=== PATIENT | male | born 1990 | race Caucasian/White ===

== ENCOUNTER 2016-04-25 08:25 | Emergency (ER) | payer SELFPAY ==
[~2016-04-25] VITALS: Ht 167.6 cm; Wt 74.1 kg
[~2016-04-25 08:25] MED LIST: ACET-1256 PO; IBUP-1050 PO; LISI-461 PO
[2016-04-25 08:27] VITALS: TEMP 36.7; O2SAT 99; Ht 167.6 cm; Wt 74.1 kg
[2016-04-25] MEDS ORDERED: HYDR-5688 PO (09:37)
[2016-04-25] MEDS ORDERED: AMOX500C3 PO (09:37)
--- NOTE | 2016-04-25 09:38 | EMERGENCY ROOM VISIT NOTE ---
ED Visit Note First contact with patient: 08:33 Chief Complaint: Large Lump on LEFT Wrist History of Present Illness: Patient is a 26 year-old male who presents to the emergency department today for evaluation of a lump to the LEFT wrist. He has noticed this over the past 2 weeks. He has increasing pain with range of motion. He has no numbness or tingling into the distal fingers. There is been no trauma to the area. There is been no history of fracture or injury to the affected area. The patient also complains of RIGHT-sided lower molar dental pain. Patient rates his current discomfort is 7/10. 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 He was on the Cipro and metoprolol which she has not taken for the past several months. He has not seen his primary care provider recently. The patient rates his current discomfort as a 7 /10. He denies any chest pain, palpitations Short of breath, headaches, distance, lightheadedness, fevers, or chills. Medications: Reviewed and discussed with the patient. Allergies: Tramadol. PMH: No pertinent past medical history. SHx: Patient is a 26-year-old male who lives locally. ROS: All pertinent positive and negative review of systems are appropriately documented in the History of Present Illness. Physical Exam: VITAL SIGNS - Vital signs and nursing notes were reviewed. GENERAL - 26-year-old male appearing his stated age who is in no acute distress. Communicates well with provider and answers questions appropriately. HEAD - Normocephalic, Atraumatic. No Nichols's Sign or Raccoon's Eyes. No depressed skull fractures palpable. EYES - PERRL with EOMI bilaterally. EARS - No deformities of external structures noted on gross examination bilaterally. No pain elicited with palpation of the tragus bilaterally. External auditory canals without discharge or otorrhea. Tympanic membranes pearly lamb without retraction or bulging. No fluid or purulent material visualized behind the TM. NOSE - Midline and without cyanosis. No epistaxis or purulent drainage noted. Septum midline without deviation or septal hematoma noted. MOUTH/OROPHARYNX - Without perioral cyanosis. Buccal mucosa pink and moist and without leukoplakia. Tongue midline with equal elevation of palate bilaterally. No tonsillar hypertrophy, erythema, or exudates noted. Fair dentition noted. The RIGHT 1st molar tooth is fractured to the posterior pole of the tooth with dental caries noted. Surrounding gums erythematous and edematous without discharge. Exquisite tenderness to palpation of affected tooth. No trismus. No fluctuance to palpation or active drainage appreciated. No sublingual edema. NECK - Neck with FROM. Supple to palpation. No lymphadenopathy noted. No nuchal rigidity. EXTREMITY - palpable fluid-filled lump noted to the dorsal surface of the LEFT wrist. Mildly tender to palpation. No fluctuance. No erythema or warmth to touch. Full range of motion of the LEFT wrist appreciated with +5/5 strength appreciated bilaterally. ED Course: Patient was seen and evaluated by myself. I had a lengthy discussion with the patient regarding symptoms. The patient will be provided a prescription for amoxicillin as well as [place] for home. He was instructed on the need for close follow-up with his primary care provider for continued management of his blood pressure issues as well as cardiac disease. The patient was educated on worrisome symptoms for return visit to the emergency department. Patient discharged home in good condition. In the evaluation and treatment of this patient, the following differential diagnoses were considered: Wrist Sprain, Wrist Fracture, Wrist Dislocation, Scapholunate Dissociation, Carpal Fracture, Metacarpal Fracture, Radial Styloid Process Fracture, Ulnar Styloid Process Fracture, or Carpal Tunnel Syndrome, Periapical Abscess, Osteonecrosis of the Jaw, Dental Fracture, Dental Caries, Joseph's Angina, Vincent's Angina, Facial Cellulitis. Impression: LEFT Wrist Ganglion Cyst, Dental Pain Due to Dental Caries Discharge Instructions: You've been seen in the emergency department today for your ganglion cyst and dental pain. You have been prescribed Ultram to be used for pain control. This is a narcotic medication. You cannot drive or consume alcohol while on this medicine. This medicine should only be used for pain that cannot be controlled with over-the- counter pain medicines. You were prescribed Amoxicillin to be taken as prescribed. This is an antibiotic. All antibiotics have the potential to cause diarrhea. Stop this medication and contact a medical provider if you were to develop any significant adverse side effects including: wheezing, shortness of breath, passing out, vomiting, or a diffuse rash. Always take antibiotics as directed and COMPLETE the ENTIRE course regardless of the improvement of your symptoms. For pain control, you can use the following wqny-isz-etuaoih medicines (if >12 yo): - Regular strength (325mg/tab) Tylenol (acetaminophen) 2 tabs every 4-6 hours as needed. Do not exceed 12 tablets in a 24 hour period. Avoid taking more than 4 grams (4000 mg) of Tylenol per day. This includes any other sources of acetaminophen you may take on a regular basis. - Regular strength (200 mg/tab) Advil (ibuprofen) 1-2 tabs every 4-6 hours as needed. Do not exceed a dose of 3200 mg per day. Follow-up with your primary care provider from today's visit. This is IMPERATIVE for continued management of your blood pressure. Return for any changing or worsening symptoms. Problem List Medical Problems: (1) Asthma Status: Chronic (2) Heart disease Status: Chronic (3) HTN (hypertension) Status: Chronic Surgical Problems: (1) S/P CABG x 2 Status: Resolved Current/Historical Medications Scheduled Amoxicillin (Amoxil), 500 MG PO TID Scheduled PRN Hydrocodone/Acetaminophen 5MG/325MG ([place] 5MG/325MG), 1-2 TABLET PO Q4H PRN for Pain Allergies Coded Allergies: Tramadol (Verified Allergy, Severe, RASH, VOMITING, 10/02/15) Vital Signs Date Time Temp Pulse Resp B/P Pulse Ox O2 Delivery O2 Flow Rate FiO2 04/25/16 09:47 78 16 166/90 04/25/16 08:27 36.7 71 18 188/96 99 Room Air Departure Information Impression Primary Impression: Pain due to dental caries Additional Impression: Ganglion cyst of wrist Dispostion Home / Self-Care Condition GOOD Prescriptions Hydrocodone/Acetaminophen 5MG/325MG ([place] 5MG/325MG) Tab 1-2 TABLET PO Q4H Y for Pain, #12 TAB For Initial Treatment Prov: Michael Chahal PA-C 04/25/16 Amoxicillin (AMOXIL) 500 Mg Cap 500 MG PO TID for 10 Days, #30 CAP Prov: Michael Chahal PA-C 04/25/16 Referrals No Doctor, Assigned (PCP) Patient Instructions My [facility] Additional Instructions You've been seen in the emergency department today for your ganglion cyst and dental pain. You have been prescribed Ultram to be used for pain control. This is a narcotic medication. You cannot drive or consume alcohol while on this medicine. This medicine should only be used for pain that cannot be controlled with over-the- counter pain medicines. You were prescribed Amoxicillin to be taken as prescribed. This is an antibiotic. All antibiotics have the potential to cause diarrhea. Stop this medication and contact a medical provider if you were to develop any significant adverse side effects including: wheezing, shortness of breath, passing out, vomiting, or a diffuse rash. Always take antibiotics as directed and COMPLETE the ENTIRE course regardless of the improvement of your symptoms. For pain control, you can use the following reop-cnq-ladobpl medicines (if >12 yo): - Regular strength (325mg/tab) Tylenol (acetaminophen) 2 tabs every 4-6 hours as needed. Do not exceed 12 tablets in a 24 hour period. Avoid taking more than 4 grams (4000 mg) of Tylenol per day. This includes any other sources of acetaminophen you may take on a regular basis. - Regular strength (200 mg/tab) Advil (ibuprofen) 1-2 tabs every 4-6 hours as needed. Do not exceed a dose of 3200 mg per day. Follow-up with your primary care provider from today's visit. This is IMPERATIVE for continued management of your blood pressure. Return for any changing or worsening symptoms. Problem Qualifiers Additional Impression: Ganglion cyst of wrist Laterality: left Qualified Codes: M67.432 - Ganglion, left wrist
[2016-04-25 09:47] VITALS: BP 166/90; PULSE 78
== END 2016-04-25 09:48 | disposition home or self-care (01) ==
LOC: C.EDB 08:26
DX: M67.432 Ganglion, left wrist (principal); K02.9 Dental caries, unspecified; J45.909 Unspecified asthma, uncomplicated; I10 Essential (primary) hypertension; Z95.1 Presence of aortocoronary bypass graft

== ENCOUNTER 2016-05-02 05:37 | Emergency (ER) | payer SELFPAY ==
[~2016-05-02] VITALS: Ht 167.6 cm; Wt 74.3 kg
[~2016-05-02 05:37] MED LIST changes: -ACET-1256 PO; +AMOX500C3 PO; +HYDR-5688 PO; -IBUP-1050 PO; -LISI-461 PO
[2016-05-02 05:44] VITALS: TEMP 36.6; Ht 167.6 cm; Wt 74.3 kg
[2016-05-02] MEDS ORDERED: HYDR-5688 PO (06:14)
--- NOTE | 2016-05-02 06:19 | EMERGENCY ROOM VISIT NOTE ---
History First contact with patient: 05:49 Chief Complaint: DENTAL PAIN Stated Complaint: SEVERE TOOTH ACHE - GETTING WORSE Nursing Triage Summary: Patient reports he was here a week ago for dental pain and they told him to come back if it got worse. Patient still unable to eat and still having pain. Patient has dentist appointment 05/07. Also states he lost weight since the pain started. History of Present Illness The patient is a 26 year old male who presents to the Emergency Room with complaints of ongoing right lower dental pain for the past week and was seen here a few days ago. He has appointment on the get the tooth pulled. He is on antibiotics. He is requesting a few extra pain pills. Patient describes the pain as aching, ranging in severity 710 worse with chewing better with rest. Patient denies fevers, dysphagia, facial swelling, tongue swelling, chest pain, dyspnea, neck stiffness or any other medical complaints. Review of Systems See HPI for pertinent positives & negatives. A total of 10 systems reviewed and were otherwise negative. Past Medical/Surgical History Medical Problems: (1) Asthma (2) Heart disease (3) HTN (hypertension) Surgical Problems: (1) S/P CABG x 2 Family History Diabetes mellitus FH: heart disease Hypertension Social History Smoking Status: Current Every Day Smoker Marital Status: single Housing Status: lives with roommate Occupation Status: unemployed Current/Historical Medications Scheduled Amoxicillin (Amoxil), 500 MG PO TID Scheduled PRN Hydrocodone/Acetaminophen 5MG/325MG ([place] 5MG/325MG), 1 TABLET PO Q4H PRN for Pain Allergies Coded Allergies: Tramadol (Verified Allergy, Severe, RASH, VOMITING, 10/02/15) Physical Exam Vital Signs Date Time Temp Pulse Resp B/P Pulse Ox O2 Delivery O2 Flow Rate FiO2 05/02/16 06:20 82 20 154/90 98 05/02/16 05:44 36.6 95 18 154/76 98 Room Air Physical Exam VITALS: Vitals are noted on the nurse's note and reviewed by myself. Vital signs stable. GENERAL: Pleasant male, in no acute distress, nondiaphoretic, well-developed well-nourished. SKIN: The skin was without rashes, erythema, edema, or bruising. There is no tenting of the skin. Capillary reflex less than 2 seconds. HEAD: Normocephalic atraumatic. EARS: External auditory canals clear, tympanic membranes pearly lamb without erythema or effusion bilaterally. EYES: Pupils equal round and reactive to light and accommodation. Conjunctivae without injection, sclerae without icterus. Extraocular movements intact. NOSE: Patent, turbinates without inflammation or discharge. No sinus tenderness. MOUTH: Mucous membranes moist. Pharynx without erythema or exudate. Uvula midline. Airway patent. Tongue does not deviate. Dental exam: Right lower molar with extensive dental decay with no palpable abscess. No signs of Joseph angina NECK: Supple without nuchal rigidity. No lymphadenopathy. No thyromegaly. Cervical spine is nontender. No JVD. HEART: Regular rate and rhythm without murmurs gallops or rubs. LUNGS: Clear to auscultation bilaterally without wheezes, rales or rhonchi. No dullness to percussion. No retractions or accessory muscle use. ABDOMEN: Positive bowel sounds x 4. Normal tympanic percussion. Soft, nontender, without masses or organomegaly. Dior sign negative. No guarding or rebound tenderness. MUSCULOSKELETAL: No muscle atrophy, erythema, or edema noted. NEURO: Patient was alert and oriented to person place and time. Normal sensation to light and sharp touch. No focal neurological deficits. Medical Decision & Procedures ED Course Prior records reviewed and summarized as above. Triage Nursing notes reviewed. The patient's history was concerning for dental pain. Differential diagnosis: Etiologies such as cellulitis, abscess, gingivitis, cavity, Joseph angina, as well as others were entertained.. Physical examination: The physical examination was consistent with dental pain from dental decay ER treatment provided: Patient was counseled on proper dental hygiene and advised to obtain all narcotics from his dentist or family care Dr. On reassessment the patient felt better. Diagnostics interpreted by me: Deferred This appears to be dental pain from dental cavity. Patient has appointment next week with dentistry. He was given a few extra pain pills. He is currently on antibiotics. No signs of abscess or airway compromise or Joseph angina. He was advised to follow-up as scheduled or here in the ER sooner for fevers, swelling, neck stiffness, worsening signs or symptoms or as needed. By the evaluation outlined above emergent etiologies such as abscess, Joesph angina, as well as others were deemed relatively unlikely. The pt informed about the findings as listed above. All questions were answered and pleased with the treatment. Return instructions were outlined and the patient was discharged in stable condition. Outpatient prescription management: norco Referral: The patient was referred back to dentistry for follow-up in 2 to 3 days for a recheck of the current condition. Medical Decision As above [place] Drug Monitoring Program Search Results: patient reviewed within database, no issues identified Impression Primary Impression: Dental caries Additional Impression: Tooth pain with chewing Departure Information Dispostion Home / Self-Care Condition GOOD Prescriptions Hydrocodone/Acetaminophen 5MG/325MG ([place] 5MG/325MG) Tab 1 TABLET PO Q4H Y for Pain, #10 TAB For Initial Treatment Prov: Zakia Jennings ., GRICELDA 05/02/16 Referrals No Doctor, Assigned (PCP) Forms HOME CARE DOCUMENTATION FORM, IMPORTANT VISIT INFORMATION Patient Instructions [facility], My [facility] Additional Instructions Continue your antibiotics as prescribed from prior ER visit. [place] 5mg/325 mg: Take 1-2 pills every four hours for breakthrough pain. Avoid alcohol, operating machinery or dangerous equipment, working on ladders or roofs , DRIVING, or situations where being under the influence may be dangerous. It is recommended to use an ztsq-cbk-vakfpxk stool softener such as Colace, 100mg twice daily while taking this medication to avoid constipation. Ibuprofen(Motrin, Advil) may be used for fever or pain. Use 600mg every six hours as needed. Take with food. Avoid using more than 2400mg in a 24 hour period. Do not use 2400mg per day for more than three consecutive days without physician direction. Prolonged inappropriate use can lead to stomach upset or ulcers. This medication can be taken if you need to drive, work, or perform activities which may be dangerous when taking narcotic pain medication. [place] teeth twice a day, floss daily and do warm saltwater gargles 3 times a day. See a dentist as soon as possible for definitive care for your dental problem. Return to ER sooner for facial swelling, fever, redness, worsening signs or symptoms or as needed. Problem Qualifiers
[2016-05-02 06:20] VITALS: BP 154/90; PULSE 82; O2SAT 98
== END 2016-05-02 06:21 | disposition home or self-care (01) ==
LOC: C.EDB 05:39
DX: K02.9 Dental caries, unspecified (principal); K08.89 Other specified disorders of teeth and supporting structures; J45.909 Unspecified asthma, uncomplicated; I11.9 Hypertensive heart disease without heart failure; F17.200 Nicotine dependence, unspecified, uncomplicated; Z95.1 Presence of aortocoronary bypass graft; Z83.3 Family history of diabetes mellitus; Z82.49 Family history of ischemic heart disease and other diseases of the circulatory system

== ENCOUNTER 2016-06-14 03:53 | Emergency (ER) | payer OTHER ==
[~2016-06-14] VITALS: Ht 167.6 cm; Wt 73.9 kg
[~2016-06-14 03:53] MED LIST changes: -AMOX500C3 PO
[2016-06-14 04:02] VITALS: Ht 167.6 cm; Wt 73.9 kg
[2016-06-14] MEDS ORDERED: CLINDAMYCIN 150MG HOME PACK PO ONE (04:15)
[2016-06-14] MEDS ORDERED: OXYCODONE IR HOME PACK PO ONE (04:15)
[2016-06-14] MEDS ORDERED: OXYC1TAB3 PO (04:17)
[2016-06-14] MEDS ORDERED: CLIN300C2 PO (04:18)
--- NOTE | 2016-06-14 04:18 | EMERGENCY ROOM VISIT NOTE ---
History Report prepared by Kiel: Beti Bejarano Under the Supervision of: Dr. Ronaldo Devlin M.D. First contact with patient: 04:06 Chief Complaint: DENTAL PAIN Stated Complaint: SEVERE TOOTH PAIN,PAIN IN RT EAR AND NECK History of Present Illness The patient is a 26 year old male who presents to the Emergency Room with complaints of persistent dental pain for the past month. He currently rates his discomfort as a 7/10 in severity. The patient states that his pain radiates into his right ear and down his right neck. He states that he called his dentist a week ago and has an appointment scheduled for the end of June. The patient states that he was previously on Amoxicillin for his dental infection, but states that he finished the course. 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 The patient states that this has caused hypertension and states that he has had two previous operations. The patient denies any fever. Source of History: patient Onset: past month Position: teeth Symptom Intensity: 7/10 Timing: other (persistent) Associated Symptoms: + neck pain, No fevers Note: Associated Symptoms: right ear pain Review of Systems See HPI for pertinent positives & negatives. A total of 10 systems reviewed and were otherwise negative. Past Medical & Surgical Medical Problems: (1) Asthma (2) Heart disease (3) HTN (hypertension) Surgical Problems: (1) S/P CABG x 2 Old medical records were reviewed. Nurse's notes were reviewed and I agree with. Family History Diabetes mellitus FH: heart disease Hypertension Social History Smoking Status: Current Every Day Smoker Alcohol Use: occasionally Marital Status: single Housing Status: lives with roommate Occupation Status: unemployed Current/Historical Medications Scheduled Clindamycin Hcl (Cleocin), 300 MG PO TID Scheduled PRN Hydrocodone/Acetaminophen 5MG/325MG ([place] 5MG/325MG), 1 TABLET PO Q4H PRN for Pain Oxycodone Immediate Rel Tab (Roxicodone Ir), 1-2 TAB PO Q4H PRN for Severe Pain Allergies Coded Allergies: Tramadol (Verified Allergy, Severe, RASH, VOMITING, 10/02/15) Physical Exam Vital Signs Date Time Temp Pulse Resp B/P Pulse Ox O2 Delivery O2 Flow Rate FiO2 06/14/16 04:39 36.5 92 18 112/64 98 Room Air 06/14/16 04:02 36.5 90 20 164/85 98 Room Air Physical Exam General: Well developed well nourished, non-ill appearing young male, complaining of a tooth ache, in no acute distress, breathing comfortably on room air. Normal speech HEENT: Normal cephalic atraumatic. Pupils are equal round and reactive to light. Extraocular movements are intact. Oropharynx is pink with moist mucous membranes. Extensive dental caries in the right dental tooth. Left lower dental tooth has a dental caries. No signs of abscess, fluctuance, or Joseph's angina. No swelling of the mouth lips or tongue. Neck: Supple with a midline trachea. No meningeal signs or stiffness, no JVD or bruits. No Stridor. Chest: Clear to auscultation bilaterally. No wheezes or rhonchi. No increased work of breathing. Heart: regular rate and rhythm. Abdomen: Soft nontender, nondistended without rebound guarding or rigidity. Extremities: No cyanosis clubbing or edema. No calf tenderness or assymetry Spine/Back. Non tender to palpation. No CVA tenderness Skin: Good turgor without rashes. Neurologic exam: Cranial nerves two through 12 are intact. Motor and sensation are intact and symmetrical throughout. Medical Decision & Procedures Medications Administered Medications (Trade) Dose Ordered Sig/Fely Route Start Time Stop Time Status Last Admin Dose Admin Clindamycin HCl (Cleocin 150MG Home Pack) 1 homepack UD ONCE PO 06/14/16 04:15 06/14/16 04:16 DC 06/14/16 04:37 1 HOMEPACK Oxycodone HCl (Roxicodone Immediate Rel 5MG Home Pack) 1 homepack UD ONCE PO 06/14/16 04:15 06/14/16 04:16 DC 06/14/16 04:37 1 HOMEPACK ED Course 0411: Past medical records reviewed. The patient was evaluated in room B2, and a complete history and physical examination were performed. I discussed the exam findings with him and I discussed the treatment plan. He verbalized complete understanding and agreement. He is ready to go home. 0415: Ordered Oxycodone HCl 1 homepack PO, Clindamycin HCl 1 homepack PO. Medical Decision Differentials include, but are not limited to; dental caries, tooth ache, abscess. This patient comes in with a toothache. On exam, he does have dental caries in the lower molar. He has no evidence of abscess or Joseph's angina or airway compromise. I will start him on clindamycin. He'll use ibuprofen for pain. For breakthrough pain, use OxyIR 5 mg one or 2 pills every 4-6 hours as needed. He was warned that this could make him drowsy and do not take before drinking , driving, working. He was encouraged to follow-up with his dentist. He should return if: increasing pain or swelling, fever chills, or symptoms, any problems concerns. He was happy with the plan and discharged to home. [place] Drug Monitoring Program Search Results: patient reviewed within database, no issues identified Impression Primary Impression: Dental caries Additional Impression: Tooth ache Scribe Attestation The scribe's documentation has been prepared under my direction and personally reviewed by me in its entirety. I confirm that the note above accurately reflects all work, treatment, procedures, and medical decision making performed by me. Departure Information Dispostion Home / Self-Care Prescriptions Clindamycin Hcl (CLEOCIN) 300 Mg Cap 300 MG PO TID for 10 Days, CAP Prov: Ronaldo Devlin M.D. 06/14/16 Oxycodone Immediate Rel Tab (ROXICODONE IR) 5 Mg Tab 1-2 TAB PO Q4H Y for Severe Pain, #15 TAB Prov: Ronaldo Devlin M.D. 06/14/16 Referrals Saad Davenport M.D. (PCP) Forms HOME CARE DOCUMENTATION FORM, IMPORTANT VISIT INFORMATION Patient Instructions My [facility] Additional Instructions Rest. Use ibuprofen 400 mg every 6 hours if needed for pain. Take with food For more severe pain, use OxyIR 5 mg, one or 2 pills every 4-6 hours as needed OxyIR may make you drowsy and do not take before drinking, driving, working Use clindamycin as direted-Antibiotic Return if: Increasing pain, worsening of symptoms, fever or chills, any new problems or concerns. Problem Qualifiers
[2016-06-14 04:39] VITALS: BP 112/64; PULSE 92; TEMP 36.5; O2SAT 98
== END 2016-06-14 04:39 | disposition home or self-care (01) ==
LOC: C.EDB 03:54
DX: K08.89 Other specified disorders of teeth and supporting structures (principal); K02.9 Dental caries, unspecified; F17.200 Nicotine dependence, unspecified, uncomplicated; J45.909 Unspecified asthma, uncomplicated; I10 Essential (primary) hypertension; I51.9 Heart disease, unspecified

== ENCOUNTER 2016-10-15 09:28 | Emergency (ER) | payer OTHER ==
[~2016-10-15] VITALS: Ht 167.6 cm; Wt 75.9 kg
[~2016-10-15 09:28] MED LIST changes: +OXYC1TAB3 PO
[2016-10-15 09:29] VITALS: TEMP 36.4; Ht 167.6 cm; Wt 75.9 kg
[2016-10-15] MEDS ORDERED: SODIUM CHLORIDE 0.9% 1000ML 1,000 ML IV ONE (10:00)
[2016-10-15] MEDS ORDERED: ONDANSETRON INJ 2 MG/ML 2 ML VIAL IV PRN (10:00)
[2016-10-15 10:09] LABS: HEMATOCRIT 45.9 % (42-52); MEAN CELL VOLUME 90.2 fL (80-100); MEAN CORPUSCULAR HEMOGLOBIN 31.6 pg (25-34); MEAN CORPUSCULAR HGB CONC 35.1 g/dl (32-36); MEAN PLATELET VOLUME 9.9 fL (7.4-10.4); PLATELET COUNT 211 K/uL (130-400); RED BLOOD COUNT 5.09 M/uL (4.7-6.1); WHITE BLOOD COUNT 16.06 K/uL (4.8-10.8)
--- NOTE | 2016-10-15 10:11 | EMERGENCY ROOM VISIT NOTE ---
History Report prepared by Kiel: Consuelo Renteria Under the Supervision of: Dr. Miguel Ramos M.D. First contact with patient: 09:45 Chief Complaint: ABDOMINAL PAIN Stated Complaint: DIARRHEA,VOMITING,ABDOMINAL PAIN Nursing Triage Summary: Pt presents with diffuse abd pain with n/v/d since last night. Denies eating anything that may have caused sx. History of Present Illness The patient is a 26 year old male who presents to the Emergency Room with complaints of constant diffuse abdominal pain that started last night. The patient is also experiencing diarrhea which started last night and persisted into this morning. He also started experiencing nausea and vomiting this morning. He states that he has been able to drink water but he has not tried to eat anything. The patient has been urinating normally. The patient denies any recent sick contacts. He also denies eating anything in the last 3 days that may have caused his symptoms. The patient has not been on antibiotics recently and he states that he is not immunocompromised. Source of History: patient Onset: last night Position: abdomen (diffuse) Timing: constant Associated Symptoms: + nausea, + vomiting, + diarrhea Review of Systems All systems have been listed, reviewed, and are negative other than those previously mentioned. Please see Additional Medical History Sheet. Past Medical & Surgical Medical Problems: (1) Asthma (2) Heart disease (3) HTN (hypertension) Surgical Problems: (1) S/P CABG x 2 Family History Diabetes mellitus FH: heart disease Hypertension Social History Smoking Status: Current Every Day Smoker Alcohol Use: occasionally Marital Status: single Housing Status: lives with roommate Occupation Status: unemployed Current/Historical Medications Scheduled Lisinopril (Zestril), 5 MG PO DAILY Ondasetron Odt (Zofran Odt), 4 MG SL Q4 Allergies Coded Allergies: Tramadol (Verified Allergy, Severe, RASH, VOMITING, 10/15/16) Physical Exam Vital Signs Date Time Temp Pulse Resp B/P (MAP) Pulse Ox O2 Delivery O2 Flow Rate FiO2 10/15/16 14:02 65 18 139/69 99 10/15/16 12:19 62 18 140/68 98 Room Air 10/15/16 10:38 65 18 150/70 98 Room Air 10/15/16 09:29 36.4 89 18 150/75 98 Room Air Physical Exam GENERAL: Patient awake, alert, oriented x 3. Patient follows commands. Patient does not appear toxic. Patient is adequately hydrated and well- nourished. SKIN: No erythema, pallor, cyanosis or rash HEENT: Normal head, pupils equal, reactive to light and accommodation. CHEST: Midline sternotomy scar. LUNGS: Clear to auscultation. No wheezes, no rales, no rhonchi. HEART: No murmurs. No gallops. No rubs ABDOMEN: Bowel sounds present, soft, nontender, no masses, no rebound, no hepatomegaly or splenomegaly. EXTREMITIES: No signs of trauma or infection. NEUROLOGIC: Cranial nerves II-XII within normal limits. No gross motor sensory function deficits. Medical Decision & Procedures Laboratory Results 10/15/16 09:42 10/15/16 09:42 Test 10/15/16 00:00 10/15/16 09:42 Urine Color YELLOW Urine Appearance CLEAR (CLEAR) Urine pH 5.5 (4.5-7.5) Urine Specific [place] 1.018 (1.000-1.030) Urine Protein NEG (NEG) Urine Glucose (UA) NEG (NEG) Urine Ketones NEG (NEG) Urine Occult Blood NEG (NEG) Urine Nitrite NEG (NEG) Urine Bilirubin NEG (NEG) Urine Urobilinogen NEG (NEG) Urine Leukocyte Esterase NEG (NEG) Red Blood Count 5.09 M/uL (4.7-6.1) Mean Corpuscular Volume 90.2 fL (80-100) Mean Corpuscular Hemoglobin 31.6 pg (25-34) Mean Corpuscular Hemoglobin Concent 35.1 g/dl (32-36) RDW Standard Deviation 39.9 fL (36.4-46.3) RDW Coefficient of Variation 12.1 % (11.5-14.5) Mean Platelet Volume 9.9 fL (7.4-10.4) Anion Gap 3.0 mmol/L (3-11) Est Creatinine Clear Calc Drug Dose 122.3 ml/min Estimated GFR () 142.0 Estimated GFR (Non- 122.6 BUN/Creatinine Ratio 18.6 (10-20) Calcium Level 8.8 mg/dl (8.5-10.1) Date/Time Source Procedure Growth Status 10/15/16 10:23 Stool C.difficile Toxin B Gene (PCR) - Final No C. difficile toxin B gene detected Complete Laboratory results as stated above per my review. Medications Administered Medications (Trade) Dose Ordered Sig/Fely Route Start Time Stop Time Status Last Admin Dose Admin Ondansetron HCl (Zofran Inj) 4 mg Q1HWA PRN IV 10/15/16 10:00 10/15/16 14:13 DC 10/15/16 10:09 4 MG Sodium Chloride 1,000 ml @ 1,000 mls/hr Q1H ONCE IV 10/15/16 10:00 10/15/16 10:59 DC 10/15/16 10:09 1,000 MLS/HR ED Course 0945: Past medical records reviewed. The patient was evaluated in room B11. A complete history and physical examination was performed. 1000: Ordered Sodium Chloride 1000 ml @ 1000 mls/hr IV, Zofran Inj 4 mg IV 1358: Upon reevaluation, the patient appeared to have improvement of his symptoms. I discussed today's findings with him. He verbalized agreement of the treatment plan. He was discharged home. Medical Decision Nurses notes reviewed. Medical history sheet reviewed. Differential diagnosis includes but is not limited to: acute gastroenteritis, dehydration, infectious diarrhea, metabolic disorder. The patient is here with nausea vomiting diarrhea. He's been unable to hold down food and very little liquid. Multiple labs obtained. Please see above. The patient was given IV fluids. He was given Zofran. The patient improved markedly and was able to drink oral fluids prior to discharge. The patient most likely has a viral cause for his symptoms despite an elevated white count. C. difficile is negative. Stool cultures pending. Medication Reconcilliation Current Medication List: was personally reviewed by me Blood Pressure Screening Patient's blood pressure: Elevated blood pressure Blood pressure disposition: Referred to PCP Impression Primary Impression: Acute gastroenteritis Scribe Attestation The scribe's documentation has been prepared under my direction and personally reviewed by me in its entirety. I confirm that the note above accurately reflects all work, treatment, procedures, and medical decision making performed by me. Departure Information Dispostion Home / Self-Care Prescriptions Ondasetron Odt (ZOFRAN ODT) 4 Mg Tab 4 MG SL Q4 for Nausea, #6 TAB Prov: Miguel Ramos M.D. 10/15/16 Referrals Saad Davenport M.D. (PCP) Forms HOME CARE DOCUMENTATION FORM, IMPORTANT VISIT INFORMATION Patient Instructions ED Gastroenteritis Viral, My [facility] Additional Instructions Drink at least 4 quarts of liquid over the next 24 hours. 1 Zofran every 4 hours as needed for nausea. Slowly advance your diet. Return here if you're unable to hold down liquids. Off work today. You may return to work tomorrow if you're feeling better.
[2016-10-15] MEDS ORDERED: LISI-729 PO (10:12)
[2016-10-15 10:16] LABS: BUN/CREATININE RATIO 18.6 (10-20); CALCIUM 8.8 mg/dl (8.5-10.1); CREATININE 0.84 mg/dl (0.60-1.40); POTASSIUM 4.3 mmol/L (3.5-5.1)
[2016-10-15 10:38] LABS: URINE APPEARANCE CLEAR (CLEAR); URINE BILIRUBIN NEG (NEG); URINE COLOR YELLOW; URINE NITRITE NEG (NEG); URINE PH 5.5 (4.5-7.5); URINE SPECIFIC GRAVITY 1.018 (1.000-1.030); UROBILINOGEN NEG (NEG); ZZUR CULT IF INDIC CLEAN CATCH NO
[2016-10-15 10:41] LABS: MANUAL MICROSCOPIC REQUIRED? NO; REVIEW REQ? NO
[2016-10-15] MEDS ORDERED: ONDA4TAB10 SL (13:43)
[2016-10-15 14:02] VITALS: BP 139/69; PULSE 65; O2SAT 99
== END 2016-10-15 14:03 | disposition home or self-care (01) ==
LOC: C.EDB 09:29
DX: K52.9 Noninfective gastroenteritis and colitis, unspecified (principal); I10 Essential (primary) hypertension; I51.9 Heart disease, unspecified; J45.909 Unspecified asthma, uncomplicated; F17.200 Nicotine dependence, unspecified, uncomplicated; Z95.1 Presence of aortocoronary bypass graft; Z79.899 Other long term (current) drug therapy; Z88.8 Allergy status to other drugs, medicaments and biological substances; Z83.3 Family history of diabetes mellitus; Z82.49 Family history of ischemic heart disease and other diseases of the circulatory system

== ENCOUNTER 2018-08-03 19:25 | Inpatient (IN) ==
--- OUTSIDE RECORDS SUMMARY | 2018-08-03 19:29 | External Medical Summary | Continuity of Care Document ---
:1990 Author Name Katarina Sharp Address Unavailable Unavailable , Care Team Providers Name Role Phone Edwardo Isabel M.D.. Unavailable [email or web address] [email or web address] M.[email or web address]. Unavailable Unavailable Unavailable Unavailable Unavailable Problems Cough (786.2) (R05) Coarctation of aorta (747.10) (Q25.1) Congenital heart defect (746.9) (Q24.9) Attention-deficit/hyperactivity disorder (314.01) (F90.9) Hypertension (401.9) (I10) Parotitis (527.2) (K11.20) Contact dermatitis due to poison [place] (692.6) (L23.7) Acute upper respiratory infection (465.9) (J06.9) Migraine headache (346.90) (G43.909) Allergies and Adverse Reactions No Known Drug Allergies (Allergy) Medications Lisinopril 5 MG Oral Tablet; TAKE 1 TABLET DAILY. Leah Isabel Start: 29-Aug-2010 Quantity: 30 Refills: 5 Adderall XR 5 MG Oral Capsule Extended R elease 24 Hour; TAKE 1 CAPSULE DAILY FOR ADHD x 2 weeks then increase to 2 tabs q day. Lila Isabel Start: 06-Mar-2011 Quantity: 60 Refills: 0 Atenolol 25 MG Oral Tablet; Take 1 tablet twice daily Lila Isabel Start: 25-Jul-2009 Quantity: 60 Refills: 5 Procedures History of Tonsillectomy Status: Complet ed Immunizations IPV On: 1992 DTaP On: 1992 IPV On: 21-Feb-1993 DTaP On: 21-Feb-1993 MMR On: 21-Feb-1993 IPV On: 22-Sep-1993 DTaP On: 22-Sep-1993 IPV On: 12-Jul-1994 DTaP On: 12-Jul-1994 HIB On: 12-Jul-1994 DTaP On: 02-Dec-1997 MMR On: 02-Dec-1997 Hepatitis B On: 02-Dec-1997 Influenza On: 01-Apr-2000 Influenza On: 11-Mar-2002 Influenza On: 08-Apr-2002 Influenza On: 30-Dec-2002 Decavac 5-2 LFU INJ On: 31-Dec-2003 Meningo (Menactra) On: 29-Jan-2005 Influenza On: 20-Mar-2005 Influenza On: 28-Feb-2006 Influenza On: 09-Jan-2007 Tdap On: 16-Sep-2007 Influenza On: 01-Feb-2008 Influenza On: 06-Mar-2011 8:48 Lot #: [id number], [employer] Family History Unknown Family Member Family history of Family Health Status Of Status: Active Comments: Family History Father - Good Family history of Family Health Status Of Status: Active Comments: Family History Brother - Good Family history of Family Health Status Of Status: Active Comments: Family History Sister - Good Social History - Smoking Status Unknown if ever smoked Never smoker Plan of Treatment Planned Observations Planned Goals not documented Results No Known Results Results not documented Encounters Appointment; Krishna Isabel M.D. 21-Nov-2011 13:30 Encounter Diagnosis: Problem not documented
--- NOTE | 2018-08-03 20:25 | XRay Report ---
XR hand RT min 3V routine CLINICAL HISTORY: Right hand pain COMPARISON: None. DISCUSSION: No acute fractures or dislocations are visualized. There is no erosive disease. IMPRESSION: No fractures identified. No evidence of erosive disease. Electronically signed by: Rancho Rodriguez M.D. 08/03/2018 8:24 PM
--- NOTE | 2018-08-03 20:25 | XRay Report ---
XR chest 1V portable CLINICAL HISTORY: Atypical chest pain COMPARISON STUDY: 10/02/2015 FINDINGS: There are postsurgical changes of a midline sternotomy. There is no failure. There are no p leural effusions. There is a vague opacity within left midlung zone. This may represent overlying sof t tissue shadow. If further evaluation is desired, a PA and lateral study would be recommended in fol low-up.[ No pleural effusions are visualized. IMPRESSION: Bag left midlung zone opacity, possibly related to an overlying soft tissue shadow. If fu rther evaluation is desired, a PA and lateral study would be recommended. The study is otherwise unre markable. Electronically signed by: Rancho Rodriguez M.D. 08/03/2018 8:22 PM
[2018-08-03 20:45] LABS: Appearance Urine Clear (Clear); Bilirubin Urine Negative (Negative); Blood Urine Negative (Negative); Color Urine Yellow; Glucose Urine UA Negative (Negative); Ketones Urine Negative (Negative); Leukocyte Esterase Urine Negative (Negative); Nitrite Urine Negative (Negative); Protein Urine Negative (Negative); Specific Gravity Urine 1.021 (1.000-1.030); Urobilinogen Urine Negative (Negative)
[2018-08-03 21:12] LABS: Amphetamines+Metham, Urine Pos (Neg); Barbiturates, Urine Neg (Neg); Benzodiazepine, Urine Neg (Neg); Cocaine, Urine Neg (Neg); MDMA (Ecstacy), Urine Neg (Neg); Methadone, Urine Neg (Neg); Opiate, Urine Neg (Neg); Phencyclidine, Urine Neg (Neg)
[2018-08-03 21:46] LABS: Basophils # (auto) 0.04 K/uL (0-0.2); Basophils % (auto) 0.4 %; Eosinophils # (auto) 0.12 K/uL (0-0.5); Eosinophils % (auto) 1.3 %; Hematocrit (blood only) 45.8 % (42-52); Immature Granulocytes # (auto) 0.02 K/uL (0.00-0.02); Immature Granulocytes % (auto) 0.2 %; Lymphocytes % (auto) 25.3 %; Mean Corpuscular Hgb Conc 34.9 g/dL (32-36); Mean Corpuscular Volume 88.1 fL (80-100); Mean Platelet Volume 10.2 fL (7.4-10.4); Monocytes # (auto) 0.47 K/uL (0.11-0.59); Neutrophils # (auto) 6.43 K/uL (1.4-6.5); Neutrophils % (auto) 67.8 %; Platelet Count 247 K/uL (130-400); RDW Coefficient of Variation 12.2 % (11.5-14.5); RDW Standard Deviation 38.7 fL (36.4-46.3); White Blood Count 9.48 K/uL (4.8-10.8)
[2018-08-03 21:55] LABS: Prothrombin Time 10.3 Seconds (9.0-12.0)
[2018-08-03 22:06] LABS: Alanine Aminotransferase 35 U/L (12-78); Albumin Level 3.7 gm/dl (3.4-5.0); Aspartate Aminotransferase 23 U/L (15-37); BUN Creatinine Ratio 12.8 (10-20); Blood Urea Nitrogen 10 mg/dl (7-18); Calcium 9.3 mg/dl (8.5-10.1); Carbon Dioxide 29 mmol/L (21-32); Chloride 107 mmol/L (98-107); Creatinine Clr Calc Pharmacy 120.2 ml/min; Est GFR (African American) 142.2; Est GFR (Non-African American) 122.7; Glucose 104 mg/dl (70-99); Magnesium 2.2 mg/dl (1.8-2.4); Potassium 3.9 mmol/L (3.5-5.1); Sodium 141 mmol/L (136-145)
[2018-08-03 22:11] LABS: Alkaline Phosphatase 61 U/L (45-117); Bilirubin,Total 0.2 mg/dl (0.2-1); Creatine Kinase 107 U/L (39-308); Globulin 3.8 gm/dl (2.5-4.0); Total Protein 7.5 gm/dl (6.4-8.2); Troponin I < 0.015 ng/ml (0-0.045)
[2018-08-03] MEDS ORDERED: ACETAMINOPHEN 500 MG TAB PO STA (22:16)
[2018-08-03 22:19] LABS: Acetaminophen < 2 ug/ml (10-30)
[2018-08-03 22:20] LABS: Salicylate 2.6 mg/dl (2.8-20)
[2018-08-03] MEDS ORDERED: NICOTINE 21 MG/24 HR TDSY TD ONE (22:33)
--- NOTE | 2018-08-03 22:38 | Emergency Department Note ---
Entered by Kristopher Beach acting as a scribe for Santiago Madden DO History of Present Illness General Chief complaint: Overdose (Intentional) Stated complaint: TOOK TOO MANY IBUPROPHEN, HOT, STOMACH Time Seen by Provider: 08/03/18 19:34 Source: patient History of Present Illness Onset (ago): hour(s) (prior to arrival) Location: mouth (overdose) Pain Consistency: + other (episode) Maximum Pain Intensity: 8 Exacerbated By: + other (depression) Associated symptoms: + denies other symptoms (current thoughts of suicidality) and + other (epigastric abdominal pain, hot sweats, chills, depression) The patient is a 28 year old M who presents to the Emergency Room with complaints of an episode of an overdose that occurred prior to arrival. The patient states that he has been depressed for the last two years ever since his father . He notes that for the last two years he has not seen a therapist for his depression. He states that he recently broke up with his girlfriend but adds that he still lives with her. He notes that his ex-girlfriend told him that he needed to get checked out at the ED. He states that for the past month he has been experiencing right wrist pain from punching a wall do relieve his depression. He notes that he has been taking ibuprofen to manage his right wrist pain. He states that today at 6:15 pm he had thoughts of hurting himself due to the stress and pain so he decided to overdose on his Ibuprofen medication. He estimates that he took 15 250 mg tablets of ibuprofen. He denies using any other medications. He states that he is currently experiencing epigastric abdominal pain, hot sweat s, and chills. He denies that he is currently experiencing thoughts of suicidality. He notes that he has chronic chest pain due to aortic valve issues. He states that he also has a history of a tonsillectomy and an adenoidectomy. He denies any drug use or alcohol use today. He also denies being suicidal before. Home Medications Home Medications Medication Instructions Recorded Confirmed Type No Known Home Medications 08/03/18 08/03/18 History Allergies Allergy/AdvReac Type Severity Reaction Status Date / Time tramadol Allergy Severe RASH, Verified 08/03/18 20:25 VOMITING amoxicillin AdvReac Gastrointestinal Verified 08/03/18 20:26 Upset Past Med/Surg History Medical History Heart disease (Chronic) HTN (hypertension) (Chronic) Asthma (Chronic) Family History Other No significant family history Social History Preferred Language: Icelandic Communication Ability: Effective Lumber Puller Required: No Beliefs That Will Affect Care: None Feels Safe at Home: Yes Smoking Status: Current every day smoker Tobacco Type: cigarettes Review of Systems See HPI for pertinent positives & negatives. and A total of 10 systems reviewed and were otherwise negative Physical Exam Vital Signs Vital Signs - 24 hr 08/03/18 19:29 08/03/18 21:25 08/04/18 01:23 Temperature 36.6 C Temperature Source Oral Sepsis Recent Fever Within 48 Hours No Sepsis New/Unexplained Change in Mental Status No Sepsis Action Taken by Nursing No Action Required Pulse Rate 100 H 64 Pulse Rate [Finger] 82 Pulse Rate [Right Brachial] Pulse Rhythm Regular Pulse Rhythm [Finger] Regular Pulse Rhythm [Right Brachial] Pulse Strength Normal Pulse Strength [Finger] Normal Pulse Strength [Right Brachial] Respiratory Rate 20 16 20 Respiratory Effort / Characteristics Non-Labored Spontaneous Non-Labored Spontaneous Respiratory Depth Normal Normal Respiratory Pattern Regular Regular Blood Pressure 125/91 125/59 L Blood Pressure [Right Arm] 137/72 Blood Pressure Mean 102 Blood Pressure Mean [Right Arm] 93 Blood Pressure Position [Right Arm] Lying Pulse Oximetry 100 99 97 Oxygen Delivery Method Room Air Room Air 08/04/18 01:24 08/04/18 06:47 08/04/18 06:48 Temperature 36.7 C 36.5 C Temperature Source Oral Oral Sepsis Recent Fever Within 48 Hours Sepsis New/Unexplained Change in Mental Status Sepsis Action Taken by Nursing Pulse Rate Pulse Rate [Finger] 78 Pulse Rate [Right Brachial] 60 75 Pulse Rhythm Pulse Rhythm [Finger] Regular Pulse Rhythm [Right Brachial] Pulse Strength Pulse Strength [Finger] Normal Pulse Strength [Right Brachial] Respiratory Rate 18 16 Respiratory Effort / Characteristics Non-Labored Spontaneous Non-Labored Spontaneous Respiratory Depth Normal Normal Respiratory Pattern Regular Regular Blood Pressure Blood Pressure [Right Arm] 127/72 124/71 140/90 Blood Pressure Mean Blood Pressure Mean [Right Arm] 90 88 106 Blood Pressure Position [Right Arm] Sitting Lying Sitting Pulse Oximetry Oxygen Delivery Method Room Air 08/04/18 10:03 Temperature Temperature Source Sepsis Recent Fever Within 48 Hours Sepsis New/Unexplained Change in Mental Status Sepsis Action Taken by Nursing Pulse Rate Pulse Rate [Finger] Pulse Rate [Right Brachial] 102 H Pulse Rhythm Pulse Rhythm [Finger] Pulse Rhythm [Right Brachial] Regular Pulse Strength Pulse Strength [Finger] Pulse Strength [Right Brachial] Normal Respiratory Rate Respiratory Effort / Characteristics Respiratory Depth Respiratory Pattern Blood Pressure Blood Pressure [Right Arm] 142/86 H Blood Pressure Mean Blood Pressure Mean [Right Arm] 104 Blood Pressure Position [Right Arm] Sitting Pulse Oximetry Oxygen Delivery Method GENERAL: Patient is awake, alert, and in no acute distress. Patient mildly anxious and guarding but agreeable to exam. EYES: The conjunctivae are clear. The pupils are round and reactive. EARS, NOSE, MOUTH AND THROAT: The nose is without any evidence of any deformity. Mucous membranes are moist.Tongue is midline NECK: The neck is nontender and supple. RESPIRATORY: Normal respiratory effort is noted. There is no evidence of wheezing rhonchi or rales to auscultation. CARDIOVASCULAR: Regular rate and rhythm noted. There no murmurs rubs or gallops normal S1 normal S2 GASTROINTESTINAL: The abdomen is soft. Bowel sounds are present in all quadrants. Abdomen is nontender. MUSCULOSKELETAL/EXTREMITIES: There is no evidence of gross deformity. Full range of motion is noted in the hips and shoulders. Swelling over the dorsal aspect of the right hand on the 4th and 5th metacarpals consistent with the patient's history of punching a wall. SKIN: There is no obvious evidence of any rash. There are no petechiae, pallor or cyanosis noted. NEUROLOGIC: Patient is awake alert and oriented x3. Strength is symmetric. Patellar reflexes are 2+ bilaterally. PSYCH: Patient makes good eye contact, affect flat. Patient admits to the overdose of medication is attempt to harm himself. Course 194: The patient was evaluated in room A7. A complete history and physical exam was performed. 2318: The patient is being evaluated by the mental health specialist. 2346: The patient is being referred to [facility]. Administered Medications Acetaminophen (Tylenol) 650 mg PO Q4H PRN PRN Reason: Headache or Minor Fever Stop: 09/02/18 23:38 Last Admin: 08/04/18 10:49 Dose: 650 mg Documented by: [id number] Miscellaneous (Remove Nicoderm Patch) 1 ea N/A HS [facility] Stop: 09/02/18 20:59 Last Admin: 08/04/18 09:38 Dose: 1 ea Documented by: [id number] Admin: 08/03/18 22:39 Dose: Not Given Documented by: [id number] Nicotine (Nicoderm Cq) 21 mg TD [facility] Stop: 09/03/18 08:59 Last Admin: 08/04/18 09:42 Dose: Not Given Documented by: [id number] Discontinued Medications Acetaminophen (Tylenol) 1,000 mg PO NOW STA Stop: 08/03/18 22:17 Last Admin: 08/03/18 22:23 Dose: 1,000 mg Documented by: [id number] Nicotine (Nicoderm Cq) 21 mg TD [facility] Stop: 09/03/18 08:59 Last Admin: 08/04/18 09:41 Dose: 21 mg Documented by: [id number] Nicotine (Nicoderm Cq) Confirm Administered Dose 21 mg TD .STK-MED ONE Stop: 08/03/18 22:34 Last Admin: 08/03/18 22:38 Dose: 21 mg Documented by: [id number] Sertraline HCl (Zoloft) 25 mg PO NOW ONE Stop: 08/04/18 10:47 Last Admin: 08/04/18 12:47 Dose: 25 mg Documented by: [id number] Medical Decision Making Differential Diagnosis Differential diagnosis includes: mood disorder, infection, hypoglycemia, electrolyte abnormalities, cardiac sources, intracerebral event, toxicologic, neurologic, as well as others were entertained. Medical Records Attestation: I reviewed the patient's medical records. Home Medications Current Medication List: was personally reviewed by me Laboratory Data Attestation: I reviewed the patient's lab results. Result diagrams: 08/03/18 21:20 08/03/18 21:20 Lab Results 08/03/18 08/03/18 08/03/18 Range/Units 19:37 19:37 21:20 WBC (4.8-10.8) K/uL RBC (4.7-6.1) M/uL Hgb (14.0-18.0) g/dL Hct (42-52) % MCV (80-100) fL MCH (25-34) pg MCHC (32-36) g/dL RDW Std Deviation (36.4-46.3) fL RDW Coeff of Kandace (11.5-14.5) % Plt Count (130-400) K/uL MPV (7.4-10.4) fL Immature Gran % (Auto) % Neut % (Auto) % Lymph % (Auto) % [place] % (Auto) % Eos % (Auto) % Baso % (Auto) % Immature Gran # (Auto) (0.00-0.02) K/uL Neut # (Auto) (1.4-6.5) K/uL Lymph # (Auto) (1.2-3.4) K/uL [place] # (Auto) (0.11-0.59) K/uL Eos # (Auto) (0-0.5) K/uL Baso # (Auto) (0-0.2) K/uL PT 10.3 (9.0-12.0) Seconds INR 1.0 (0.9-1.1) Sodium (136-145) mmol/L Potassium (3.5-5.1) mmol/L Chloride (98-107) mmol/L Carbon Dioxide (21-32) mmol/L Anion Gap (3-11) BUN (7-18) mg/dl Creatinine (0.6-1.4) mg/dl Est Cr Clr Drug Dosing ml/min Est GFR ( Amer) Est GFR (Non-Af Amer) BUN/Creatinine Ratio (10-20) Glucose (70-99) mg/dl Osmolality (280-300) mOsm/kg Calcium (8.5-10.1) mg/dl Magnesium (1.8-2.4) mg/dl Total Bilirubin (0.2-1) mg/dl AST (15-37) U/L ALT (12-78) U/L Alkaline Phosphatase (45-117) U/L Total Creatine Kinase (39-308) U/L Troponin I (0-0.045) ng/ml Total Protein (6.4-8.2) gm/dl Albumin (3.4-5.0) gm/dl Globulin (2.5-4.0) gm/dl Albumin/Globulin Ratio (0.9-2) Lipase (73-393) U/L TSH (0.300-4.500) uIu/ml Urine Color Yellow Urine Appearance Clear (Clear) Urine pH 7.0 (4.5-7.5) Ur Specific [place] 1.021 (1.000-1.030) Urine Protein Negative (Negative) Urine Glucose (UA) Negative (Negative) Urine Ketones Negative (Negative) Urine Blood Negative (Negative) Urine Nitrite Negative (Negative) Urine Bilirubin Negative (Negative) Urine Urobilinogen Negative (Negative) Ur Leukocyte Esterase Negative (Negative) Salicylates (2.8-20) mg/dl Urine Opiates Screen Neg (Neg) Ur Methadone, Qual Neg (Neg) Acetaminophen (10-30) ug/ml Urine Barbiturates Neg (Neg) Ur Phencyclidine (PCP) Neg (Neg) U Amphetamin/Meth Scrn Pos H (Neg) MDMA (Ecstasy) Screen Neg (Neg) U Benzodiazepines Scrn Neg (Neg) Ur Cocaine Metabolite Neg (Neg) U Marijuana (THC) Screen Pos H (Neg) Ethyl Alcohol mg/dL (0-3) mg/dl 08/03/18 08/03/18 08/03/18 Range/Units 21:20 21:20 21:20 WBC (4.8-10.8) K/uL RBC (4.7-6.1) M/uL Hgb (14.0-18.0) g/dL Hct (42-52) % MCV (80-100) fL MCH (25-34) pg MCHC (32-36) g/dL RDW Std Deviation (36.4-46.3) fL RDW Coeff of Kandace (11.5-14.5) % Plt Count (130-400) K/uL MPV (7.4-10.4) fL Immature Gran % (Auto) % Neut % (Auto) % Lymph % (Auto) % [place] % (Auto) % Eos % (Auto) % Baso % (Auto) % Immature Gran # (Auto) (0.00-0.02) K/uL Neut # (Auto) (1.4-6.5) K/uL Lymph # (Auto) (1.2-3.4) K/uL [place] # (Auto) (0.11-0.59) K/uL Eos # (Auto) (0-0.5) K/uL Baso # (Auto) (0-0.2) K/uL PT (9.0-12.0) Seconds INR (0.9-1.1) Sodium (136-145) mmol/L Potassium (3.5-5.1) mmol/L Chloride (98-107) mmol/L Carbon Dioxide (21-32) mmol/L Anion Gap (3-11) BUN (7-18) mg/dl Creatinine (0.6-1.4) mg/dl Est Cr Clr Drug Dosing ml/min Est GFR ( Amer) Est GFR (Non-Af Amer) BUN/Creatinine Ratio (10-20) Glucose (70-99) mg/dl Osmolality 296 (280-300) mOsm/kg Calcium (8.5-10.1) mg/dl Magnesium (1.8-2.4) mg/dl Total Bilirubin (0.2-1) mg/dl AST (15-37) U/L ALT (12-78) U/L Alkaline Phosphatase (45-117) U/L Total Creatine Kinase (39-308) U/L Troponin I (0-0.045) ng/ml Total Protein (6.4-8.2) gm/dl Albumin (3.4-5.0) gm/dl Globulin (2.5-4.0) gm/dl Albumin/Globulin Ratio (0.9-2) Lipase (73-393) U/L TSH (0.300-4.500) uIu/ml Urine Color Urine Appearance (Clear) Urine pH (4.5-7.5) Ur Specific [place] (1.000-1.030) Urine Protein (Negative) Urine Glucose (UA) (Negative) Urine Ketones (Negative) Urine Blood (Negative) Urine Nitrite (Negative) Urine Bilirubin (Negative) Urine Urobilinogen (Negative) Ur Leukocyte Esterase (Negative) Salicylates 2.6 L (2.8-20) mg/dl Urine Opiates Screen (Neg) Ur Methadone, Qual (Neg) Acetaminophen < 2 L (10-30) ug/ml Urine Barbiturates (Neg) Ur Phencyclidine (PCP) (Neg) U Amphetamin/Meth Scrn (Neg) MDMA (Ecstasy) Screen (Neg) U Benzodiazepines Scrn (Neg) Ur Cocaine Metabolite (Neg) U Marijuana (THC) Screen (Neg) Ethyl Alcohol mg/dL < 3.0 (0-3) mg/dl 08/03/18 08/03/18 08/03/18 Range/Units 21:20 21:20 21:20 WBC 9.48 (4.8-10.8) K/uL RBC 5.20 (4.7-6.1) M/uL Hgb 16.0 (14.0-18.0) g/dL Hct 45.8 (42-52) % MCV 88.1 (80-100) fL MCH 30.8 (25-34) pg MCHC 34.9 (32-36) g/dL RDW Std Deviation 38.7 (36.4-46.3) fL RDW Coeff of Kandace 12.2 (11.5-14.5) % Plt Count 247 (130-400) K/uL MPV 10.2 (7.4-10.4) fL Immature Gran % (Auto) 0.2 % Neut % (Auto) 67.8 % Lymph % (Auto) 25.3 % [place] % (Auto) 5.0 % Eos % (Auto) 1.3 % Baso % (Auto) 0.4 % Immature Gran # (Auto) 0.02 (0.00-0.02) K/uL Neut # (Auto) 6.43 (1.4-6.5) K/uL Lymph # (Auto) 2.40 (1.2-3.4) K/uL [place] # (Auto) 0.47 (0.11-0.59) K/uL Eos # (Auto) 0.12 (0-0.5) K/uL Baso # (Auto) 0.04 (0-0.2) K/uL PT (9.0-12.0) Seconds INR (0.9-1.1) Sodium 141 (136-145) mmol/L Potassium 3.9 (3.5-5.1) mmol/L Chloride 107 (98-107) mmol/L Carbon Dioxide 29 (21-32) mmol/L Anion Gap 5.0 (3-11) BUN 10 (7-18) mg/dl Creatinine 0.81 (0.6-1.4) mg/dl Est Cr Clr Drug Dosing 120.2 ml/min Est GFR ( Amer) 142.2 Est GFR (Non-Af Amer) 122.7 BUN/Creatinine Ratio 12.8 (10-20) Glucose 104 H (70-99) mg/dl Osmolality (280-300) mOsm/kg Calcium 9.3 (8.5-10.1) mg/dl Magnesium 2.2 (1.8-2.4) mg/dl Total Bilirubin 0.2 (0.2-1) mg/dl AST 23 (15-37) U/L ALT 35 (12-78) U/L Alkaline Phosphatase 61 (45-117) U/L Total Creatine Kinase 107 (39-308) U/L Troponin I < 0.015 (0-0.045) ng/ml Total Protein 7.5 (6.4-8.2) gm/dl Albumin 3.7 (3.4-5.0) gm/dl Globulin 3.8 (2.5-4.0) gm/dl Albumin/Globulin Ratio 1.0 (0.9-2) Lipase 99 (73-393) U/L TSH 1.300 (0.300-4.500) uIu/ml Urine Color Urine Appearance (Clear) Urine pH (4.5-7.5) Ur Specific [place] (1.000-1.030) Urine Protein (Negative) Urine Glucose (UA) (Negative) Urine Ketones (Negative) Urine Blood (Negative) Urine Nitrite (Negative) Urine Bilirubin (Negative) Urine Urobilinogen (Negative) Ur Leukocyte Esterase (Negative) Salicylates (2.8-20) mg/dl Urine Opiates Screen (Neg) Ur Methadone, Qual (Neg) Acetaminophen (10-30) ug/ml Urine Barbiturates (Neg) Ur Phencyclidine (PCP) (Neg) U Amphetamin/Meth Scrn (Neg) MDMA (Ecstasy) Screen (Neg) U Benzodiazepines Scrn (Neg) Ur Cocaine Metabolite (Neg) U Marijuana (THC) Screen (Neg) Ethyl Alcohol mg/dL (0-3) mg/dl Imaging Data Radiologist's Impression: Radiology results as stated below per my review and th e radiologist's interpretation: XR chest 1V portable CLINICAL HISTORY: Atypical chest pain COMPARISON STUDY: 10/02/2015 FINDINGS: There are postsurgical changes of a midline sternotomy. There is no failure. There are no pleural effusions. There is a vague opacity within left midlung zone. This may represent overlying soft tissue shadow. If further e valuation is desired, a PA and lateral study would be recommended in follow-up.[ No pleural effusions are visualized. IMPRESSION: Bag left midlung zone opacity, possibly related to an overlying soft tissue shadow. If further evaluation is desired, a PA and lateral study would be recommended. The study is otherwise unremarkable. Electronically signed by: Rancho Rodriguez M.D. 08/03/2018 8:22 PM XR hand RT min 3V routine CLINICAL HISTORY: Right hand pain COMPARISON: None. DISCUSSION: No acute fractures or dislocations are visualized. There is no erosive disease. IMPRESSION: No fractures identified. No evidence of erosive disease. Electronically signed by: Rancho Rodriguez M.D. 08/03/2018 8:24 PM ECG Data Attestation: I personally reviewed and interpreted this ECG as follows: Indication: abdominal pain Rate (beats per minute): 86 Rhythm: normal sinus Findings: + RBBB; no ectopy Comparison ECG Date: from (02/08/2000) Change: no significant change Blood Pressure Blood Pressure Findings: Normal blood pressure Blood Pressure Disposition: did not require urgent referral MDM Narrative The patient is a 28-year-old male who presented to the emergency department for mental health evaluation. The patient has been under many stressors recently. He has been having trouble with his relationships but also has been having trouble with work. The patient does not have any outpatient therapy. The patient has been punching a wall repeatedly and he has significant swelling and ecchymosis over his right hand. No definite fractures were noted. This evening he had an impulsive suicidal gesture where he took multiple ibuprofen tablets. The patient's suicidal gesture was significant but it appears to be under the toxic dose of ibuprofen. The patient was medically cleared in the emergency department. We discussed the patient's laboratory and radiographic studies with him. At this time he is being evaluated by the mental health case planner. The patient is agreeable to voluntary evaluation and inpatient treatment if needed. The patient was evaluated by the delegate from [facility]. He was felt to be a good candidate for inpatient treatment. The 201 was signed by myself. Impression & Plan Depression, Suicide gesture, Contusion of hand, left, Ibuprofen overdose Discharge Plan Visit Data *Final* Discharge Date/Time: 08/04/18 01:23 Chief Complaint: Overdose (Intentional) Stated Complaint: TOOK TOO MANY IBUPROPHEN, HOT, STOMACH ED Provider: Santiago Madden Discharge Problem: Depression, Suicide gesture, Contusion of hand, left, Ibuprofen overdose Patient Disposition: Admitted As Inpatient Discharge Instructions Interventions: ED Discharge Assessment Last Done: 08/04/18 01:23 Discharge Problem: Depression Qualifiers: Depression Type: unspecified Qualified Code(s): F32.9 - Major depressive disorder, single episode, unspecified Suicide gesture Qualifiers: Encounter type: initial encounter Qualified Code(s): X83.8XXA - Intentional self-harm by other specified means, initial encounter Contusion of hand, left Qualifiers: Encounter type: initial encounter Qualified Code(s): S60.222A - Contusion of l eft hand, initial encounter Ibuprofen overdose Qualifiers: Encounter type: initial encounter Injury intent: intentional self-harm Qualified Code(s): T39.312A - Poisoning by propionic acid derivatives, intentional self-harm, initial encounter The scribe's documentation has been prepared under my direction and personally reviewed by me in its entirety. I confirm that the note above accurately reflects all work, treatment, procedures, and medical decision making performed by me.
[2018-08-03] MEDS ORDERED: ALUMINUM/MAGNESIUM SUSP 30 ML UDC PO PRN (23:39)
[2018-08-03] MEDS ORDERED: SODIUM CHLORIDE 0.65% NA SOLN 45 ML (OCEAN) PRN (23:39)
[2018-08-03] MEDS ORDERED: MAGNESIUM HYDROXIDE SUSP 30 ML UDC PO PRN (23:39)
[2018-08-03] MEDS ORDERED: BISMUTH SUBSALICYLATE PER ML OMNICELL CHARGE PO PRN (23:39)
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
[2018-08-04] MEDS: NICOTINE 21 MG/24 HR TDSY TD SCH ×4 (09:36→09:42)
[2018-08-04] MEDS ORDERED: SERTRALINE HCL 50 MG TABLET PO ONE (10:46)
[2018-08-04] MEDS: ACETAMINOPHEN 325 MG TAB PO PRN ×2 (10:49→20:00)
[2018-08-05] MEDS: NICOTINE 21 MG/24 HR TDSY TD SCH (09:21)
[2018-08-05] MEDS: SERTRALINE HCL 50 MG TABLET PO SCH (09:22)
[2018-08-05] MEDS: ACETAMINOPHEN 325 MG TAB PO PRN (14:07)
[2018-08-05] MEDS: NICOTINE POLACRILEX 2 MG GUM MT PRN (17:37)
--- NOTE | 2018-08-05 18:13 | Psychiatric Progress Note ---
Date of Service August 05, 2018 Impression / Recommendations Impression Reports improvement in mood since time of admission. He has attended few groups today due to reports of a migraine headache. Patient does admit that his migraine is improving, and was encouraged to attend group programming when he felt ready. Patient denies significant side effects to initiation of Zoloft; but with significant migraine today we will plan to continue at current dosage to ensure he is tolerating the medication. Discussed with him likely eventual plan to continue titration if side effects are not reported. Patient denies suicidal ideation today, but present concern is lack of outpatient support and his current treatment. Would be very beneficial to involve his ex-girlfriend and a family meeting in order to complete discharge and safety planning. Patient is agreeable to this. Patient was encouraged in his progress; however, we discussed need to see consistency of improved mood in order to reduce risk of rapid decompensation at discharge. Patient verbalized understanding. Inpatient treatment is medically necessary due to the risk for suicide/harm to self if discharged prematurely. (1) Ibuprofen overdose: 08/04 -patient denies GI upset, is tolerating food well. -Work on discharge safety plan, increasing supports in the community. (2) Depression: 08/04 -patient reports worsening mood for the past 2 years, since the of his father. Recently, mood has been exacerbated by methamphetamine use and psychosocial issues (breakup, difficulty keeping a job). -TSH added on, normal at 1.3. -Educated re: diagnoses and treatment options. -Patient is willing for trial of an SSRI, reviewed risks, benefits, and side effects of sertraline, and he agreed. Will start sertraline 25mg daily today a nd increase to 50mg daily tomorrow. -Encourage group participation, work on healthy coping skills and discharge safety plan. -Family meeting if indicated. -Refer for outpatient treatment with a psychiatrist and therapist, preferably dual diagnosis. 08/05 - Will continue Zoloft at 50mg tomorrow, given significant migraine headache today - will ensure he is tolerating medication prior to further titration - Still requires a family meeting with outpatient support - likely ex- girlfriend (3) Anxiety: Anxiety NOS - symptoms of panic and PTSD, exacerbated by recent meth use. Does not meet full criteria for PTSD, IRVIN or panic. - Start SSRI as above, avoid substances especially meth. - Hydroxyzine as needed for anxiety. (4) Drug abuse: 08/04 - UDS + THC and methamphetamine/amphetamine; patient reports daily marijuana use for 8 years, periods of heavy alcohol use, heroin use x 3 months earlier this year, and methamphetamine use x 1 month prior to admission. -Denies IV drug use. (5) Contusion of hand, left: 08/04 -hand films negative for fracture. Monitor and treat symptomatically with acetaminophen, rest, ice. (6) HTN (hypertension): 08/04 -monitor blood pressure, clarify previous diagnosis and treatment, and resume antihypertensive medication if indicated. -Ensure follow-up with PCP. 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 Chief Complaint "Pretty good other than this migraine." Review of Systems Notes Constitutional: reports blurred vision Cardiovascular: denied Respiratory: denied Gastrointestinal: denied Neurological: reports current migraine Psychiatric: denies symptoms other than stated above Total of at least 10 systems reviewed, pertinent positives as above and in HPI. Sleep Information Total Hours of Sleep: 7.5 Meal Information Percent Meal Consumed - Breakfast: 50 Percent Meal Consumed - Lunch: 90 Percent Meal Consumed - Dinner: 50 Nutrition Comment: bites Subjective Subjective Patient was seen & assessed and interval progress reviewed with nursing. Staff reports that the patient was observed to be somewhat brighter on the unit. Patient rated his mood at 9/10 and "excited" last evening. Patient will still require a family meeting to be scheduled with his ex-girlfriend. Patient was seen today to assess progress since admission. Patient states that his mood has improved; however, he does admit that he has had a migraine from the majority of the day. Patient reports onset was "1 hour after I got the Zoloft." Patient reports a history of migraines occurring 1-2 times per month, stating he has not had one in some time. Current migraine is presenting as most do with reports of blurred vision. Patient states the pain has been improving as the day is continued. Patient reports overall improvement in mood and denies suicidal thoughts today. He states he had a visit from his ex-girlfriend last evening which she states went well. Reviewed the importance of involving outpatient supports and aftercare and discharge planning. Patient is agreeable to speaking with his ex-girlfriend during visiting hours this evening to see if a family meeting can be scheduled. Patient denies any other needs or concerns today. Physical Exam Psychiatric Orientation: alert, oriented x 3 and cooperative Apperance: appropriately dressed and appropriately groomed Eye Contact: + fair eye contact Motor Behavior: steady gait and station and no abnormal motor movements Speech: normal rate/rhythm/volume of speech Affect: mood congruent with affect Affect is somewhat brighter Mood: no depressed mood and no anxious mood Reporting improvement patient reporting improvement in mood, describing it as "pretty good" Thought Process: goal directed thought process and clear/coherent thought process Thought Content: reality based without delusions Suicidal Thoughts: denies suicidal thoughts Homicidal Thoughts: denies homicidal thoughts Hallucinations: no auditory hallucinations and no visual hallucinations Cognition: recent memory grossly intact, attention grossly intact and language grossly intact Estimated Intelligence: consistent with education level Insight: + fair insight Judgement: + fair judgement Vital Signs (Past 24 Hours) Last Vital Signs Temp 36.7 C 08/05/18 06:57 Pulse 87 08/05/18 06:58 Resp 16 08/05/18 06:57 BP 146/90 H 08/05/18 06:58 Pulse Ox 97 08/04/18 01:23 Results & Data Current Inpatient Medications Current Inpatient Medications: Current Inpatient Medications Acetaminophen (Tylenol) 650 mg PO Q4H PRN PRN Reason: Headache or Minor Fever Stop: 09/02/18 23:38 Last Admin: 08/05/18 14:07 Dose: 650 mg Documented by: Al Hydrox/Mg Hydrox/Simethicone (Maalox) 30 ml PO Q4H PRN PRN Reason: GI Upset Stop: 09/02/18 23:38 Bismuth Subsalicylate (Kaopectate) 15 ml PO PRN PRN PRN Reason: Loose Stool Stop: 09/02/18 23:38 Hydroxyzine HCl (Vistaril) 50 mg PO HSZ PRN PRN Reason: Insomnia Stop: 09/02/18 23:38 Hydroxyzine HCl (Vistaril) 25 mg PO Q4H PRN PRN Reason: Anxiety Stop: 09/02/18 23:38 Magnesium Hydroxide (Milk Of Magnesia) 30 ml PO DAILY PRN PRN Reason: Constipation Stop: 09/02/18 23:38 Miscellaneous (Remove Nicoderm Patch) 1 ea N/A HS TONI Stop: 09/02/18 20:59 Last Admin: 08/04/18 20:57 Dose: 1 ea Documented by: Nicotine (Nicoderm Cq) 21 mg TD QAM TONI Stop: 09/03/18 08:59 Last Admin: 08/05/18 09:21 Dose: 21 mg Documented by: Nicotine Polacrilex (Nicorette 2mg) 1 piece MT UD PRN PRN Reason: Nicotine Withdrawal Stop: 09/02/18 23:38 Last Admin: 08/05/18 17:37 Dose: 1 piece Documented by: Sertraline HCl (Zoloft) 50 mg PO QAM TONI Stop: 09/04/18 08:59 Last Admin: 08/05/18 09:22 Dose: 50 mg Documented by: Sodium Chloride ([place] Nasal) 1 - 2 sprays NA PRN PRN PRN Reason: Nasal Dryness/Congestion Stop: 09/02/18 23:38 Post Discharge Appointments Primary Care Physician Name Of Family Doctor: Dr. Tripp @ [facility] Therapist Name of Therapist: denies Photo Print Specialist Name of Photo Print Specialist: denies CPT Code CPT Code 79476 (1) Ibuprofen overdose Encounter type: initial encounter Injury intent: intentional self-harm Qualified Code(s): T39.312A - Poisoning by propionic acid derivatives, intentio nal self-harm, initial encounter (2) Depression Depression Type: unspecified Qualified Code(s): F32.9 - Major depressive disorder, single episode, unspecified (3) Contusion of hand, left Encounter type: initial encounter Qualified Code(s): S60.222A - Contusion of left hand, initial encounter
[2018-08-06] MEDS: NICOTINE 21 MG/24 HR TDSY TD SCH (08:57)
[2018-08-06] MEDS: SERTRALINE HCL 50 MG TABLET PO SCH (08:58)
[2018-08-06] MEDS: NICOTINE POLACRILEX 2 MG GUM MT PRN ×2 (11:39→18:04)
--- NOTE | 2018-08-06 13:52 | Psychiatric Progress Note ---
Date of Service August 06, 2018 Impression / Recommendations Impression Pt continues to report improvement in mood. He has been interactive on the unit. Review recommendation for titration of sertraline to 100mg to maximize benefits of the medication. Pt declines at this time, as he has been feeling well. Reviewed ongoing elevated blood pressure readings. Pt believes he had been on 25mg of lisinopril in the past, he is agreeable to restarting at 10mg and titrating as necessary. Family meeting with ex-girlfriend this afternoon, which is an especially important aspect of discharge planning for this patient, has her reports limited outpatient supports. Inpatient treatment is medically necessary due to the risk for suicide/harm to self if discharged prematurely, ideally we will observe consistent improvement in mood prior to discharge. (1) Ibuprofen overdose: 08/04 -patient denies GI upset, is tolerating food well. -Work on discharge safety plan, increasing supports in the community. (2) Depression: 08/04 -patient reports worsening mood for the past 2 years, since the of his father. Recently, mood has been exacerbated by methamphetamine use and psychosocial issues (breakup, difficulty keeping a job). -TSH added on, normal at 1.3. -Educated re: diagnoses and treatment options. -Patient is willing for trial of an SSRI, reviewed risks, benefits, and side effects of sertraline, and he agreed. Will start sertraline 25mg daily today and increase to 50mg daily tomorrow. -Encourage group participation, work on healthy coping skills and discharge safety plan. -Family meeting if indicated. -Refer for outpatient treatment with a psychiatrist and therapist, preferably dual diagnosis. 08/05 - Will continue Zoloft at 50mg tomorrow, given significant migraine headache today - will ensure he is tolerating medication prior to further titration - Still requires a family meeting with outpatient support - likely ex- girlfriend 08/06 - Continue current medication regimen; reviewed recommendation to titrate to 100mg to maximize benefits - patient declines at this time - Family meeting with ex-girlfriend this afternoon - Confirm reported housing plans (3) Anxiety: Anxiety NOS - symptoms of panic and PTSD, exacerbated by recent meth use. Does not meet full criteria for PTSD, IRVIN or panic. - Start SSRI as above, avoid substances especially meth. - Hydroxyzine as needed for anxiety. (4) Drug abuse: 08/04 - UDS + THC and methamphetamine/amphetamine; patient reports daily marijuana use for 8 years, periods of heavy alcohol use, heroin use x 3 months earlier this year, and methamphetamine use x 1 month prior to admission. -Denies IV drug use. (5) Contusion of hand, left: 08/04 -hand films negative for fracture. Monitor and treat symptomatically with acetaminophen, rest, ice. (6) HTN (hypertension): 08/04 -monitor blood pressure, clarify previous diagnosis and treatment, and resume antihypertensive medication if indicated. -Ensure follow-up with PCP. 08/06 - Pt reports previously taking lisinopril at a possible dose of "25mg" - will restart at 10mg, giving one dose today, then scheduling to be taken each morning - Continue routine monitoring of vitals, titrate as needed (7) Nicotine dependence: 08/04 - Nicotine patch 21mg daily for cravings Inventory Assets Strengths: Willing for treatment, employed Needs: Abstinence from drugs of abuse, therapy/outpatient treatment Risk Factors Assessment Male: Yes : Yes Do You Have Access To A Gun?: No Health Problems: Yes Mental Health Diagnoses: Yes Substance Use Disorders: Yes Previous Attempt: No Family History of Suicide: No Previous Psychiatric Hospitalization: No Hopelessness: Yes Smoker: Yes Protective Factors Assessment Anabaptism Beliefs: No : No Responsible for Young Children: No 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 Chief Complaint "Yeah, it's been good so far. I think I'm a lot better." Review of Systems Notes Constitutional: reports resolution of his migraine headache Cardiovascular: denied Respiratory: denied Gastrointestinal: denied Neurological: denied Psychiatric: denies symptoms other than stated above Total of at least 10 systems reviewed, pertinent positives as above and in HPI. Sleep Information Total Hours of Sleep: 7 Meal Information Percent Meal Consumed - Breakfast: 75 Percent Meal Consumed - Lunch: 90 Percent Meal Consumed - Dinner: 50 Nutrition Comment: bites Subjective Subjective Patient was seen & assessed and interval progress reviewed with Treatment Team. Staff reports the patient was isolative for much of the day yesterday due to a migraine headache. He has been observed to be more interactive today. Pt shared with staff his plan to live with friends at discharge. Pt was seen today to assess progress since admission. Pt states he is feeling "a lot better." He denies suicidality today. Pt has a family meeting scheduled with his ex- girlfriend today, which he expects to go well. Pt is hoping for discharge soon, but is understanding of need to confirm aftercare, see consistency in mood, and complete a safety plan prior to discharge. We reviewed opportunity for medication adjustments. Pt declines further titration of sertraline, as he has been satisfied with his improvement in mood. Pt states he had previously taken lisinopril, at what he believes to be a 25mg dose, to target HTN. He is agreeable to resuming at a lower dose today. Pt denies other specific needs or concerns at this time. Physical Exam Psychiatric Orientation: alert, oriented x 3 and cooperative Apperance: appropriately dressed and appropriately groomed Eye Contact: good eye contact Motor Behavior: steady gait and station and no abnormal motor movements Speech: normal rate/rhythm/volume of speech Affect: euthymic affect and mood congruent with affect Mood: no depressed mood and no anxious mood "Yeah, I think a lot better" Thought Process: goal directed thought process, linear/logical thought process and clear/coherent thought process Thought Content: reality based without delusions Suicidal Thoughts: denies suicidal thoughts Homicidal Thoughts: denies homicidal thoughts Hallucinations: no auditory hallucinations and no visual hallucinations Cognition: recent memory grossly intact, attention grossly intact and language grossly intact Estimated Intelligence: consistent with education level Insight: + fair insight Judgement: + fair judgement Vital Signs (Past 24 Hours) Last Vital Signs Temp 36.7 C 08/06/18 06:00 Pulse 68 08/06/18 06:48 Resp 16 08/06/18 06:00 BP 153/98 H 08/06/18 06:48 Pulse Ox 97 08/04/18 01:23 Results & Data Current Inpatient Medications Current Inpatient Medications: Current Inpatient Medications Acetaminophen (Tylenol) 650 mg PO Q4H PRN PRN Reason: Headache or Minor Fever Stop: 09/02/18 23:38 Last Admin: 08/05/18 14:07 Dose: 650 mg Documented by: Al Hydrox/Mg Hydrox/Simethicone (Maalox) 30 ml PO Q4H PRN PRN Reason: GI Upset Stop: 09/02/18 23:38 Bismuth Subsalicylate (Kaopectate) 15 ml PO PRN PRN PRN Reason: Loose Stool Stop: 09/02/18 23:38 Hydroxyzine HCl (Vistaril) 50 mg PO HSZ PRN PRN Reason: Insomnia Stop: 09/02/18 23:38 Hydroxyzine HCl (Vistaril) 25 mg PO Q4H PRN PRN Reason: Anxiety Stop: 09/02/18 23:38 Magnesium Hydroxide (Milk Of Magnesia) 30 ml PO DAILY PRN PRN Reason: Constipation Stop: 09/02/18 23:38 Miscellaneous (Remove Nicoderm Patch) 1 ea N/A HS TONI Stop: 09/02/18 20:59 Last Admin: 08/05/18 18:44 Dose: 1 ea Documented by: Nicotine (Nicoderm Cq) 21 mg TD QAM TONI Stop: 09/03/18 08:59 Last Admin: 08/06/18 08:57 Dose: 21 mg Documented by: Nicotine Polacrilex (Nicorette 2mg) 1 piece MT UD PRN PRN Reason: Nicotine Withdrawal Stop: 09/02/18 23:38 Last Admin: 08/06/18 11:39 Dose: 1 piece Documented by: Sertraline HCl (Zoloft) 50 mg PO QAM TONI Stop: 09/04/18 08:59 Last Admin: 08/06/18 08:58 Dose: 50 mg Documented by: Sodium Chloride ([place] Nasal) 1 - 2 sprays NA PRN PRN PRN Reason: Nasal Dryness/Congestion Stop: 09/02/18 23:38 Post Discharge Appointments Primary Care Physician Name Of Family Doctor: Dr. Tripp @ [facility] Therapist Name of Therapist: denies Bloom Conveyor Operator Name of Bloom Conveyor Operator: denies CPT Code CPT Code 96281 (1) Ibuprofen overdose Encounter type: initial encounter Injury intent: intentional self-harm Qualified Code(s): T39.312A - Poisoning by propionic acid derivatives, intentional self-harm, initial encounter (2) Depression Depression Type: unspecified Qualified Code(s): F32.9 - Major depressive disorder, single episode, unspecified (3) Contusion of hand, left Encounter type: initial encounter Qualified Code(s): S60.222A - Contusion of left hand, initial encounter
[2018-08-06] MEDS: LISINOPRIL 10 MG TAB PO SCH (14:58)
[2018-08-06 15:00] LABS: Amphetamine Urine, Confirm 1380 NG/ML (CUTOF=250); Marijuana Quant, GCMS Urine 459 NG/ML (CUTOFF=5)
[2018-08-06] MEDS: ACETAMINOPHEN 325 MG TAB PO PRN (17:46)
[2018-08-07] MEDS ORDERED: cloNIDine HCl 0.1 MG TAB PO ONE (08:09)
[2018-08-07] MEDS: NICOTINE 21 MG/24 HR TDSY TD SCH (09:07)
[2018-08-07] MEDS: LISINOPRIL 10 MG TAB PO SCH (09:07)
[2018-08-07] MEDS: SERTRALINE HCL 50 MG TABLET PO SCH (09:08)
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
[2018-08-07] MEDS: NICOTINE POLACRILEX 2 MG GUM MT PRN (11:13)
== END 2018-08-07 11:15 | disposition home or self-care (01) | DRG 881 ==
LOC: ED 19:25 → 3S 23:40